=== PATIENT | male | born 1950 | race Hispanic/Latino ===

== ENCOUNTER 2019-10-17 09:00 | Emergency (ER) | payer OTHER ==
[~2019-10-17 09:00] MED LIST: ASPI-555 PO; GLIM1TAB18 PO; LISI-613 PO; METF-446 PO; SENN1TAB45 PO
== END 2019-10-17 10:23 | disposition home or self-care (01) ==
LOC: EDH 09:00
DX: T18.9XXA Foreign body of alimentary tract, part unspecified, initial encounter (principal); E11.9 Type 2 diabetes mellitus without complications; I10 Essential (primary) hypertension; X58.XXXA Exposure to other specified factors, initial encounter; Y93.89 Activity, other specified; Y92.89 Other specified places as the place of occurrence of the external cause; Y99.8 Other external cause status
CPT/HCPCS: 70360; 71045; 74018

== ENCOUNTER 2020-04-01 | Inpatient (IN) | payer OTHER | END 2020-04-04 17:05 | disposition home or self-care (01) | DRG 177 | PROVIDERS: ADMIT Family Medicine ==